=== PATIENT | male | born 1995 | race African-American/Black ===

== ENCOUNTER 2023-06-11 19:08 | Emergency (ER) | payer SELFPAY ==
[2023-06-11 19:11] VITALS: BP 133/90
[2023-06-11 22:54] LABS: % Basophils 0.4 % (0-2); % Immature Granulocytes 0.6 % (0-0.5); % Lymphocytes 23.4 % (20.5-51.1); % Monocytes 10.7 % (1.7-9.3); % Neutrophils 62.9 % (42.2-75.2); Absolute Eosinophils 0.1 10^3/uL (0-0.7); Absolute Lymphocytes 1.7 10^3/uL (1.2-3.4); Absolute Monocytes 0.8 10^3/uL (0.1-0.6); Absolute Neutrophils 4.5 10^3/uL (1.4-6.5); Hematocrit 40.9 % (39.0-52.0); Hemoglobin 14.1 g/dL (13.0-18.0); Mean Corp Hgb Conc. 34.5 g/dL (33.0-37.0); Mean Corpuscular Hgb 27.6 pg (27.0-31.0); Mean Corpuscular Volume 80.2 fL (80.0-94.0); Mean Platelet Volume 10.6 fL (7.4-10.4); Nucleated Red Blood Cells % 0 % (-); Platelet Count 219 10^3/uL (130-400); White Blood Cell Count 7.1 10^3/uL (4.8-10.8)
[2023-06-11 23:10] LABS: ALT (SGPT) 17 U/L (0-50); AST (SGOT) 19 U/L (17-59); Albumin 4.1 g/dl (3.5-5.0); Alkaline Phosphatase 95 U/L (38-126); Blood Urea Nitrogen 10 mg/dl (9-20); Calcium 9.8 mg/dl (8.4-10.2); Carbon Dioxide 22 mmol/L (22-30); Chloride 103 mmol/L (98-107); Glucose 296 mg/dl (70-99); Potassium 4.6 mmol/L (3.5-5.1); Sodium 134 mmol/L (135-145); Total Bilirubin 0.9 mg/dl (0.2-1.3); Total Protein 7.3 g/dl (6.3-8.2); eGFR > 60.00
[2023-06-11 23:30] VITALS: BP 120/72
--- NOTE | 2023-06-12 00:01 | ED.GENMED ---
History of Present Illness
General
Chief Complaint: Musculo-Skeletal Complaint
Source: patient
Exam Limitations: none
Time Seen by Provider: 06/11/23 20:17
Nursing documentation reviewed up to this point in time: agreed with
Travel History
Have you had any contact with someone who has COVID-19?: No
Do you have any symptoms of coronavirus? Fever > 100 degrees, chills, cough, shortness of breath, sore throat, loss of taste or smell, muscle aches, or headache?: No
Course
Orders/Labs/Results
Orders:
Orders
06/11/23 19:16
Knee, Left 4 or More Views [CR Knee - Left 4 Or More View*] Urgent
Comment:
Reason For Exam: injury and pain
06/11/23 19:17
US Periph Venous LOWER Ext LT Urgent
Comment:
Reason For Exam: pain and swelling
06/11/23 22:49
Complete Blood Count/With Diff Urgent
Comprehensive Metabolic Panel Urgent
06/11/23 23:45
Apixaban [Eliquis] 10 mg PO NOW STA
Abnormal Lab Results
06/11/23
22:49
MPV 10.6 H fL
(7.4-10.4)
Absolute Monos (auto) 0.8 H 10^3/uL
(0.1-0.6)
Immature Gran % 0.6 H %
(0-0.5)
Monocytes % 10.7 H %
(1.7-9.3)
Sodium 134 L mmol/L
(135-145)
Glucose 296 H mg/dl
(70-99)
06/11/23 22:49
06/11/23 22:49
Vital Signs
Initial and Last Documented VS:
Initial Vital Signs
Temp Pulse Resp BP Pulse Ox
98.0 F 110 18 133/90 99
06/11/23 19:11 06/11/23 19:11 06/11/23 19:11 06/11/23 19:11 06/11/23 19:11
Last Documented Vital Signs
Temp Pulse Resp BP Pulse Ox
98 F 102 18 120/72 98
06/11/23 23:30 06/11/23 23:30 06/11/23 23:30 06/11/23 23:30 06/11/23 23:30
ED Attending Note
-
Portions of this chart may have been created with voice recognition software.� Occasional wrong word or��sound alike� substitutions may have occurred due to the inherent limitations of voice recognition software.
Discharge Plan
Departure
Patient Disposition: Home (Routine Discharge)
Date of Disposition: 06/11/23
Time of Disposition: 23:46
Patient with high blood pressure during this ER visit?: No
Condition: Good
Covid-19: Not Applicable
Discharge Problem:
DVT (deep venous thrombosis)
Instructions: Deep Vein Thrombosis (DVT) ED
Prescriptions:
New
Eliquis DVT-PE Treat 30D Start 5 mg (74 tabs) tablets,dose pack
See Rx Instructions .ROUTE .COMPLEX Qty: 74 0RF
Rx Instructions:
orally per package directions
Referrals:
Breann Patel, DO [Active] - Call in 1-3 days for appt
NONE,* [Family Provider] -
Stand Alone Forms: Return to Work
Activity Restrictions/Additional Instructions:
Return to the emergency department immediately for any chest pain/pressure, SOB, or for any further concerns.
Interventions
Interventions:
*Risk Screen - Suicide Last Done: 06/11/23 19:11
*General Assessment Last Done: 06/11/23 19:11
*Neglect/Abuse Screening Last Done: 06/11/23 19:11
ED- Fall Risk Assessment Last Done: 06/11/23 19:11
*ED COVID-19 Vaccine History Last Done: 06/11/23 19:11
*Nursing Disposition Last Done: 06/12/23 00:52
ED-Musculoskeletal Assessment Last Done: 06/11/23 22:39
Discharge Date and Time
Discharge Date/Time: 06/12/23 00:53
[2023-06-12] MEDS: ELIQUIS 10 MG PO (00:08)
--- NOTE | 2023-06-12 22:49 | ED.MUSCINJ ---
HPI-Injury
General
Chief Complaint: Musculo-Skeletal Complaint
Source: patient
Exam Limitations: none
Time Seen by Provider: 06/11/23 20:17
Nursing documentation reviewed up to this point in time: agreed with
Travel History
Have you had any contact with someone who has COVID-19?: No
Do you have any symptoms of coronavirus? Fever > 100 degrees, chills, cough, shortness of breath, sore throat, loss of taste or smell, muscle aches, or headache?: No
History of Present Illness-Injury
Initial Injury comments:
Patient state he slpped and fell disclocating his knee in April. Knee reduced on own. Pateint states that he rested knee, continued to ice and knee bgan to feel better. Over the past week he noticed increasing swelling to leg. Brought self to
ED for eval. Denies fever/chills, CP/SOB. No prior history of same.
Past History
Past History
ED Past Medical History: None
ED Past Surgical History: None
Review of Systems
Review of Systems
Allergies reviewed?: Yes
All Other Systems: ROS reviewed and negative except as documented in HPI and ROS
Musculoskeletal: Reports joint pain (Pain to left knee. Swelling to LLE)
Skin: Reports no symptoms
Neurological: Reports no symptoms
Psychiatric: Reports no symptoms
Phy Exam
General Physical Exam
General Presentation: well appearing and no apparent distress
General age: appears stated age
General Skin: warm and dry
General Habitus: normal
General Mental: alert
Musculoskeletal Exam
Musculoskeletal Exam: neuro vasc intact and other (Pain to left knee, swelling to LLE. No erythema.)
Skin Exam
Skin Exam: normal color, warm/dry and no rash
Psychiatric Exam
Psychiatric Exam: normal mood/affect
Injury Course
Orders/Labs/Results
Orders:
Orders
06/11/23 19:16
Knee, Left 4 or More Views [CR Knee - Left 4 Or More View*] Urgent
Comment:
Reason For Exam: injury and pain
06/11/23 19:17
US Periph Venous LOWER Ext LT Urgent
Comment:
Reason For Exam: pain and swelling
06/11/23 22:49
Complete Blood Count/With Diff Urgent
Comprehensive Metabolic Panel Urgent
06/11/23 23:45
Apixaban [Eliquis] 10 mg PO NOW STA
Abnormal Lab Results
06/11/23
22:49
MPV 10.6 H fL
(7.4-10.4)
Absolute Monos (auto) 0.8 H 10^3/uL
(0.1-0.6)
Immature Gran % 0.6 H %
(0-0.5)
Monocytes % 10.7 H %
(1.7-9.3)
Sodium 134 L mmol/L
(135-145)
Glucose 296 H mg/dl
(70-99)
06/11/23 22:49
06/11/23 22:49
*Radiology
Radiology exam reviewed: preliminary read by ED provider
*Pulse Oximetry
Patient hypoxic: no
*Critical Care Note
Total Time (30-74mins, 75-104mins- exclusive of procedures): Not Applicable
Update Note
Update Note:
US report reviewed with patient. Will start on eliquis in dept. Rx sent to his pharmacy. He is discharged home, recommend follow up with hematology. Given instructions ons/s to return to ED and he is agreeable to plan.
ED Attending Note
-
Portions of this chart may have been created with voice recognition software.� Occasional wrong word or��sound alike� substitutions may have occurred due to the inherent limitations of voice recognition software.
Discharge Plan
Departure
Patient Disposition: Home (Routine Discharge)
Date of Disposition: 06/11/23
Time of Disposition: 23:46
Patient with high blood pressure during this ER visit?: No
Condition: Good
Covid-19: Not Applicable
Discharge Problem:
DVT (deep venous thrombosis)
Instructions: Deep Vein Thrombosis (DVT) ED
Prescriptions:
New
Eliquis DVT-PE Treat 30D Start 5 mg (74 tabs) tablets,dose pack
See Rx Instructions .ROUTE .COMPLEX Qty: 74 0RF
Rx Instructions:
orally per package directions
Referrals:
Breann Patel, DO [Active] - Call in 1-3 days for appt
NONE,* [Family Provider] -
Stand Alone Forms: Return to Work
Activity Restrictions/Additional Instructions:
Return to the emergency department immediately for any chest pain/pressure, SOB, or for any further concerns.
Interventions
Interventions:
*Risk Screen - Suicide Last Done: 06/11/23 19:11
*General Assessment Last Done: 06/11/23 19:11
*Neglect/Abuse Screening Last Done: 06/11/23 19:11
ED- Fall Risk Assessment Last Done: 06/11/23 19:11
*ED COVID-19 Vaccine History Last Done: 06/11/23 19:11
*Nursing Disposition Last Done: 06/12/23 00:52
ED-Musculoskeletal Assessment Last Done: 06/11/23 22:39
Discharge Date and Time
Discharge Date/Time: 06/12/23 00:53
== END 2023-06-12 00:53 | disposition home or self-care (01) ==
LOC: EMR 19:08
PROVIDERS: Nurse Practitioner; EMERGENCY PHYSICIAN Emergency Medicine
DX: I82.4Z2 Acute embolism and thrombosis of unspecified deep veins of left distal lower extremity (principal); Z79.01 Long term (current) use of anticoagulants
CPT/HCPCS: 99285; 73564; 80053; 85025; 93971